=== PATIENT | male | born 1945 | race Caucasian/White ===

== ENCOUNTER 2023-10-18 18:49 | Outpatient (CLI) | payer MEDICARE ==
--- NOTE | 2023-10-21 07:43 | XRAY Report ---
PROCEDURE: Hip w/Pelvis 2-3V LT INDICATIONS: FALL/LEFT HIP PAIN/RIGHT HAND PAIN TECHNIQUE: 2 views of the hip were acquired. COMPARISON: None. FINDINGS: Bones: There is prior bilateral total hip arthroplasty. No gross hardware loosening or failure. No ac [place] fracture or dislocation. Increased sclerosis in bony pelvis is seen particularly involving left p ubic bone and pubic rami. Soft tissues: No suspicious soft tissue calcifications or masses. IMPRESSION: 1. No gross acute left hip fracture or dislocation. 2. Increased and sclerotic changes involving bony pelvis as described above. Bony metastasis cannot b e excluded. Clinical correlation is recommended. Comparison with prior study can also be helpful if a vailable. Reviewed by: Tad Treviño MD on 10/21/2023 7:42 AM PDT Approved by: Tad Treviño MD on 10/21/2023 7:42 AM PDT Station ID: [id number]
--- NOTE | 2023-10-21 09:58 | XRAY Report ---
PROCEDURE: Hand 3+V RT INDICATIONS: FALL/LEFT HIP PAIN/RIGHT HAND PAIN TECHNIQUE: 3 views of the hand(s) acquired. COMPARISON: None. FINDINGS: Bones: Comminuted fracture of the third digit tuft. No significant displacement. No dislocations. N o suspicious bony lesions. Moderate degenerative changes. Soft tissues: No suspicious soft tissue calcifications or masses. IMPRESSION: Comminuted fracture of the third digit tuft. Reviewed by: Gui Newell MD on 10/21/2023 9:56 AM PDT Approved by: Gui Newell MD on 10/21/2023 9:56 AM PDT Station ID: [id number]
== END 2023-10-18 23:59 | disposition home or self-care (01) ==
LOC: DI.S 18:49
PROVIDERS: ATTEND Registered Nurse
DX: S62.632A Displaced fracture of distal phalanx of right middle finger, initial encounter for closed fracture (principal); M19.041 Primary osteoarthritis, right hand; M89.9 Disorder of bone, unspecified; M25.552 Pain in left hip; Z96.643 Presence of artificial hip joint, bilateral

== ENCOUNTER 2023-12-10 18:24 | Outpatient (CLI) | payer MEDICARE | END 2023-12-10 23:59 | disposition critical access hospital (66) | LOC: EMS 18:24 | DX: R41.0 Disorientation, unspecified (principal) | CPT/HCPCS: A0425; A0429 ==

== ENCOUNTER 2023-12-10 19:43 | Emergency (ER) | payer MEDICARE ==
--- NOTE | 2023-12-10 20:03 | ED Physician Documentation ---
PD HPI ALTERED MENTAL STATUS - Stated complaint Stated Complaint: AMS - Chief complaint Chief Complaint: Neuro - History obtained from History obtained from: Patient, Family, EMS - Additional information Additional information: 77-year-old gentleman with metastatic prostate cancer undergoing therapy through [facility] in [place]. He is on chronic narcotics for chronic pain. Since last night he has been confused and potentially hallucinating. He presents by ambulance with his son. His son notes that he took his evening meds including his morphine early last night and the pill containers for the morphine for Saturday and Saturday (noting today is Saturday) are already empty. . PD PAST MEDICAL HISTORY - Past Medical History Other Past Medical History: prostate ca with mets to colon - Allergies Allergies/Adverse Reactions: Allergies Allergy/AdvReac Type Severity Reaction Status Date / Time No Known Drug Allergies Allergy Verified 12/10/23 19:58 - Social History Does the pt smoke?: No Smoking Status: Never smoker PD ED PE NORMAL - Vitals Vital signs reviewed: Yes - General General: Alert and oriented X 3, Other (Slightly somnolent but alert and oriented) - HEENT HEENT: PERRL, EOMI - Neck Neck: Supple, no meningeal sign, No bony TTP - Cardiac Cardiac: RRR, No murmur - Respiratory Respiratory: No respiratory distress, Clear bilaterally - Abdomen Abdomen: Non tender - Back Back: No CVA TTP, No spinal TTP - Derm Derm: Normal color, Warm and dry - Extremities Extremities: No edema, No calf tenderness / cord - Neuro Neuro: Alert and oriented X 3, No motor deficit, No sensory deficit, Normal speech Eye Opening: Spontaneous Motor: Obeys Commands Verbal: Oriented GCS Score: 15 - Psych Psych: Normal mood, Normal affect Results - Vitals Vitals: Vital Signs - 24 hr 12/10/23 19:54 Temperature 36.8 C Heart Rate 85 Respiratory 16 Rate Blood Pressure 170/84 H O2 Saturation 98 Oxygen O2 Source Room air - Labs Labs: Laboratory Tests 12/10/23 12/10/23 20:08 20:08 WBC 6.0 RBC 4.25 L Hgb 13.0 L Hct 40.0 L MCV 94.1 H MCH 30.6 MCHC 32.5 RDW 13.9 Plt Count 277 MPV 10.6 Neut # (Auto) 4.3 Lymph # (Auto) 1.0 L Harvey # (Auto) 0.7 Eos # (Auto) 0.0 Baso # (Auto) 0.0 Absolute Nucleated RBC 0.00 Nucleated RBC % 0.0 Sodium 141 Potassium 2.9 L Chloride 102 Carbon Dioxide 28 Anion Gap 11.0 BUN 17 Creatinine 0.5 L Estimated GFR (MDRD) 162 Glucose 74 Calcium 9.1 Magnesium 1.7 Total Bilirubin 0.3 AST 86 H ALT 39 Alkaline Phosphatase 75 Total Protein 6.4 Albumin 3.7 Globulin 2.7 Albumin/Globulin Ratio 1.4 Ethyl Alcohol < 10.0 PD Medical Decision Making - ED course ED course: Who presents with altered mental status in the setting of likely overtaking his morphine. He is only mildly somnolent at this juncture. Differential diagnosis decides medication misadventure would include hypercalcemia of malignancy and less likely intracranial metastases. CBC showing modest anemia, no priors for comparison. CMP showing mild hypokalemia and mild elevation of AST of unclear chronicity. Blood alcohol negative. His calcium level was unremarkable at 9.1. Son was comfortable with discharge and he will keep an eye on his meds and help him out. He was given resources for home health care and also recommended they contact [facility] as he is already in palliative care and they may be able to help as well. Departure - Departure Disposition: 01 Home, Self Care Clinical Impression: Altered mental status Qualifiers: Altered mental status type: unspecified Qualified Code(s): R41.82 - Altered mental status, unspecified Condition: Good Record reviewed to determine appropriate education?: Yes Comments: We suspect the cause of your confusion today was related to excess use of morphine. We did labs and a CAT scan of your head which were negative except for low potassium level which she received a dose of here. There should be home health care agencies included in this packet but would also recommend you reach out to [facility] as you already enrolled in palliative care there to discuss what they can do to help. Call your doctor to arrange a follow-up appointment, make the next available appointment. Also consider with your physician, could you be developing dementia? In the interim, return anytime if worse or if new symptoms develop. Forms: PCP List
[2023-12-10 20:06] VITALS: O2SAT 98
[2023-12-10 20:12] LABS: BASOPHILS % (AUTO) 0.2 %; EOSINOPHILS % (AUTO) 0.7 %; LYMPHOCYTES % (AUTO) 17.1 %; MEAN CORPUSCULAR HEMOGLOBIN 30.6 pg (27.0-31.0); MEAN CORPUSCULAR HGB CONC 32.5 g/dL (32.0-36.0); MEAN CORPUSCULAR VOLUME 94.1 fL (80.0-94.0); MEAN PLATELET VOLUME 10.6 fL (7.4-11.4); MONOCYTES # (AUTO) 0.7 10^3/uL (0.0-1.0); MONOCYTES % (AUTO) 10.8 %; NEUTROPHILS # (AUTO) 4.3 10^3/uL (1.5-6.6); NEUTROPHILS % (AUTO) 70.9 %; PLT - PLATELET COUNT 277 10^3/uL (130-450); RED BLOOD COUNT 4.25 10^6/uL (4.70-6.10); RED CELL DISTRIBUTION WIDTH 13.9 % (12.0-15.0)
[2023-12-10 20:21] LABS: MAGNESIUM 1.7 mg/dL (1.7-2.3)
[2023-12-10 20:27] LABS: ALBUMIN 3.7 g/dL (3.2-5.5); ALBUMIN/GLOBULIN RATIO 1.4 (1.0-2.2); ALKALINE PHOSPHATASE 75 IU/L (42-121); ALT ALANINE AMINOTRANSFERASE 39 IU/L (10-60); AST ASPARTATE AMINOTRANSFERASE 86 IU/L (10-42); BILIRUBIN,TOTAL 0.3 mg/dL (0.2-1.0); BUN - BLOOD UREA NITROGEN 17 mg/dL (6-20); CALCIUM 9.1 mg/dL (8.5-10.3); CARBON DIOXIDE - CO2 28 mmol/L (21-32); CHLORIDE 102 mmol/L (101-111); CREATININE 0.5 mg/dL (0.6-1.3); ETOH - ETHANOL < 10.0 mg/dL; GFR - MDRD 162 (>89); GLUCOSE 74 mg/dL (74-104); POTASSIUM 2.9 mmol/L (3.5-4.5); SODIUM 141 mmol/L (135-145); TOTAL PROTEIN 6.4 g/dL (6.4-8.9)
--- NOTE | 2023-12-10 20:51 | CT Report ---
PROCEDURE: Head WO INDICATIONS: AMS TECHNIQUE: Noncontrast 4.5 mm thick angled axial sections acquired from the foramen magnum to the vertex. For r adiation dose reduction, the following was used: automated exposure control, adjustment of mA and/or kV according to patient size. COMPARISON: None. FINDINGS: Image quality: Excellent. CSF spaces: Basal cisterns are patent. No extra-axial fluid collections. Ventricles are normal in size and shape. Brain: No midline shift. No intracranial masses or hemorrhage. Stewart-white matter interface is norm al. Skull and face: Calvarium and visualized facial bones are intact, without suspicious lesions. Sinuses: Visualized sinuses and mastoids are clear. IMPRESSION: No acute intracranial pathology. Reviewed by: Tad William MD on 12/10/2023 8:49 PM PDT Approved by: Tad William MD on 12/10/2023 8:49 PM PDT Station ID: [id number]
[2023-12-10] MEDS: POTASSIUM BICARB 25 MEQ TABLET PO STA (21:07)
[2023-12-10 21:32] VITALS: BP 180/93
== END 2023-12-10 21:31 | disposition home or self-care (01) ==
LOC: EDBD → EDUNIT# → ED 19:43
DX: R41.0 Disorientation, unspecified (principal); E87.6 Hypokalemia
CPT/HCPCS: 36415; 70450; 80053; 83735; 85025; 99283; 99284; A9270; G0480; 82077

== ENCOUNTER 2023-12-24 05:29 | Outpatient (CLI) | payer MEDICARE | END 2023-12-24 23:59 | disposition critical access hospital (66) | LOC: EMS 05:29 | DX: M54.2 Cervicalgia (principal); R51.9 Headache, unspecified; W18.30XA Fall on same level, unspecified, initial encounter; Y92.008 Other place in unspecified non-institutional (private) residence as the place of occurrence of the external cause | CPT/HCPCS: A0425; A0429 ==

== ENCOUNTER 2023-12-24 06:05 | Emergency (ER) | payer MEDICARE ==
--- NOTE | 2023-12-24 06:16 | ED Physician Documentation ---
History of Present Illness - Stated complaint Stated Complaint: GLF/HEAD PX - History obtained from History obtained from: Patient, EMS - Additonal information Additional information: The patient is brought to the emergency department by EMS for chief complaint of ground-level fall and hitting his head. The patient has also complained of a headache and some neck pain and route. The patient has advanced prostate cancer and has been struggling with poor balance and some confusion since starting chemotherapy. He does recall the fall and states that he lost his balance after stumbling and fell backwards. He hit his head on the wooden decking, as he was outside on his deck, but did not lose consciousness. His family found him there and were going to help him up, but when they realized she had neck pain, they called EMS instead. The patient is estimated to have been laying on the deck for approximately 1 hour. Patient denies any other injuries. No hip or rib pain. No back pain. No shoulder or upper extremity pain. No knee pain. No other complaints at this time. The patient does note that he does have some chronic neck pain and cannot clearly articulate whether this is worse than usual or not. He did have his oxycodone and morphine before transport, according to his normal schedule. PD PAST MEDICAL HISTORY - Allergies Allergies/Adverse Reactions: Allergies Allergy/AdvReac Type Severity Reaction Status Date / Time No Known Drug Allergies Allergy Verified 12/24/23 06:10 - Social History Does the pt smoke?: No Smoking Status: Never smoker PD ED PE NORMAL - Vitals Vital signs reviewed: Yes - General General: No acute distress, Well developed/nourished, Other (Patient is alert and answers questions, though does sometimes process slowly.) - HEENT HEENT: Atraumatic (No obvious trauma to the head. No particular tenderness.), PERRL, EOMI, Moist mucous membranes - Neck Neck: Supple, no meningeal sign, Other (Diffuse tenderness over the bones of the neck as well as the musculature on both sides. No obvious step-off.) - Cardiac Cardiac: RRR, No murmur, Strong equal pulses - Respiratory Respiratory: No respiratory distress, Clear bilaterally - Abdomen Abdomen: Soft, Non tender, Non distended - Derm Derm: Normal color, Warm and dry, No rash, Other (No trauma) - Extremities Extremities: No deformity, No tenderness to palpate, Normal ROM s pain, No edema, Other (No tenderness to palpation over the hips and no pain with AP or lateral compression of the pelvis. No tenderness or step-off over the ribs. No tenderness of the clavicles or shoulders. Moving arms without difficulty or complaint of pain.) - Neuro Neuro: Alert and oriented X 3 - Psych Psych: Normal mood, Normal affect Results - Vitals Vitals: Vital Signs - 24 hr 12/24/23 12/24/23 06:10 06:54 Temperature 36.5 C Heart Rate 97 99 Respiratory 15 18 Rate Blood Pressure 187/92 H 183/84 H O2 Saturation 95 97 Oxygen O2 Source Room air PD Medical Decision Making - ED course Complexity details: reviewed old records, reviewed results, re-evaluated patient, considered differential, d/w patient ED course: The patient was worked up with CT scans of the head and neck. He did not seem to be injured in any other way and reported his usual balance issues as the culprit for his fall, not a syncopal episode.The patient's son did arrive in the emergency department and I was able to speak with him and addressed his questions and concerns. The patient has been sent for CT scans and these are pending at this time. The patient will be signed out to Dr. Slade at change of shift, pending CTs and final disposition. He remains in a c-collar at this time.
--- NOTE | 2023-12-24 08:37 | CT Report ---
PROCEDURE: Head WO INDICATIONS: fell/hit head TECHNIQUE: Noncontrast 4.5 mm thick angled axial sections acquired from the foramen magnum to the vertex. For r adiation dose reduction, the following was used: automated exposure control, adjustment of mA and/or kV according to patient size. COMPARISON: CT head dated 12/10/2023, CT cervical spine dated 12/24/2023. FINDINGS: Image quality: Excellent. CSF spaces: Basal cisterns are patent. No extra-axial fluid collections. Ventricles are normal in size and shape. Brain: No midline shift. No intracranial masses or hemorrhage. Stewart-white matter interface is norm al. Intracranial carotid calcifications. Age-related volume loss and mild small vessel ischemic cruz ge. Skull and face: Calvarium and visualized facial bones are intact. There is a sclerotic lesion involv ing the clivus. Cervical spine images demonstrate extensive sclerotic metastatic disease. Sinuses: Visualized sinuses and mastoids are clear. IMPRESSION: No acute intracranial pathology. Sclerotic bony metastatic disease involving the clivus and the cervical spine. Findings are concordant with preliminary interpretation provided by [facility]. Reviewed by: Carl Kelly MD on 12/24/2023 8:36 AM PDT Approved by: Carl Kelly MD on 12/24/2023 8:36 AM PDT Station ID: [id number]
--- NOTE | 2023-12-24 08:45 | CT Report ---
PROCEDURE: Cervical Spine WO INDICATIONS: fall/hit head/neck pain TECHNIQUE: Noncontrast 3 mm thick sections acquired from the skull base to the T4 level. Sagittal and coronal r eformats were then constructed. For radiation dose reduction, the following was used: automated exp osure control, adjustment of mA and/or kV according to patient size. COMPARISON: None. FINDINGS: Image quality: Excellent. Bones: No fractures or dislocations. There is extensive sclerotic metastatic disease which involves the clivus, occipital condyles, and all cervical vertebral bodies. There is diffuse cervical spondyli tic change with multilevel disc height loss and uncovertebral joint osteophytes and bony foraminal na rrowing and facet arthropathy. There is multilevel foraminal narrowing. Visualized superior ribs are intact. Soft tissues: Prevertebral soft tissues are normal in thickness. No paravertebral hematomas. No ap ical pneumothoraces. IMPRESSION: 1. No acute cervical fracture or dislocation. 2. Extensive sclerotic bony metastatic disease in the cervical spine and skull base. 3. Cervical spondylosis with multilevel bilateral bony foraminal narrowing. Findings are concordant with preliminary interpretation provided by [facility]. Reviewed by: Carl Kelly MD on 12/24/2023 8:43 AM PDT Approved by: Carl Kelly MD on 12/24/2023 8:43 AM PDT Station ID: [id number]
--- NOTE | 2023-12-24 08:51 | ED Physician Documentation ---
ED Addendum - Addendum Addendum: 12/24/23 08:[address] report came back showing no intracranial problems with bleeding swelling etc. The cervical spine did not show any acute fractures nor misalignments. No obvious disc protrusions. Noted were some sclerotic lesions at the base of the skull and the cervical and thoracic spine consistent with metastatic disease. I talked with the patient and his grandson and they were aware of bony metastases from his prostate cancer. We will forward the information if we can to his oncologist Dr. Chandler and his primary care Dr. Concepcion. The patient was given his usual pain medicines that they had with him. He did not need any further meds at this time. Disposition: Patient discharged home in stable condition Diagnoses: 1. General weakness 2. Metastatic prostate cancer 3. Fall with head injury 4. Neck pain
[2023-12-24 09:12] VITALS: BP 186/97; O2SAT 100
== END 2023-12-24 09:31 | disposition home or self-care (01) ==
LOC: EDUNIT# → ED 06:05
DX: S09.90XA Unspecified injury of head, initial encounter (principal); M54.2 Cervicalgia; R53.1 Weakness; W01.0XXA Fall on same level from slipping, tripping and stumbling without subsequent striking against object, initial encounter; Y92.008 Other place in unspecified non-institutional (private) residence as the place of occurrence of the external cause; C61 Malignant neoplasm of prostate; C79.9 Secondary malignant neoplasm of unspecified site; Z79.899 Other long term (current) drug therapy
CPT/HCPCS: 99283; 99284